=== PATIENT | male | born 1965 | race Caucasian/White ===

== ENCOUNTER 2021-08-31 19:30 | Emergency (ER) | payer OTHER ==
[~2021-08-31] VITALS: Ht 170.2 cm; Wt 108.9 kg
[~2021-08-31 19:30] MED LIST: ASPI325 PO; Afeditab Cr30 MG PO; CARV25 PO; HYDCHL25 PO; K-Tab10 MEQ PO; LOSA50 PO; ZOCOR20 MG
== END 2021-08-31 20:45 | disposition home or self-care (01) ==
LOC: ER 19:30
DX: R04.0 Epistaxis (principal); I10 Essential (primary) hypertension; Z88.8 Allergy status to other drugs, medicaments and biological substances; Z88.0 Allergy status to penicillin; Z79.899 Other long term (current) drug therapy; Z79.82 Long term (current) use of aspirin
CPT/HCPCS: 30905; 99283-25; A9270